=== PATIENT | female | born 1935 | race Caucasian/White ===

== ENCOUNTER 2017-05-23 18:13 | Emergency (ER) | payer MEDICARE ==
[2017-05-23] MEDS ORDERED: Zofran 4 MG/2 ML VIAL IV ONE (18:34)
[2017-05-23] MEDS ORDERED: MORPHINE SULFATE 2 MG INJ IV ONE (18:34)
--- NOTE | 2017-05-23 18:39 | ERPHSYRPT ---
- History of Present Illness Time Seen by Provider: 05/23/17 18:35 Source: patient, family Exam Limitations: no limitations Physician History: 81 y/o female with history of CAD, CVA and diabetes comes to the ER after falling on two different occasions. Pt says that on Friday, she tripped and landed on her left side. On , patient reports passing out and hitting her head. Pt also believes she lost consciousness momentarily. Pt describes the headache, left rib pain and left arm pain as a 5/10, constant and pt has not taken any pain meds. Pt is on ASA. Pt denies any chest pain, shortness of breath , palpitations or blurry vision. Witnessed: unwitnessed Prior Episodes: recent history Timing/Duration: day(s) Precipitating Factors: lightheadedness Context: standing Loss of Consciousness: brief (seconds) [place] of event(s): collapsed Allergies/Adverse Reactions: simvastatin [From Zocor] Allergy (Verified 05/23/17 18:36) Home Medications: Metformin HCl 500 mg [Glucophage 500 MG] 500 mg PO BID 12/31/14 [History] Benazepril HCl 10 mg [Lotensin 10 MG] 10 mg PO DAILY 05/23/17 [History] Metoprolol Tartrate 50 mg PO HS 05/23/17 [History] Hx Tetanus, Diphtheria Vaccination/Date Given: Yes Hx Influenza Vaccination/Date Given: Yes Hx Pneumococcal Vaccination/Date Given: No Immunizations Up to Date: Yes - Past Medical History Pertinent Past Medical History: Yes Neurological History: Stroke, TIA ENT History: Cataracts, Macular Degeneration Cardiac History: Arrhythmia Respiratory History: COPD Endocrine Medical History: Diabetes Type II, Hyperthyroidism Musculoskeletal History: Arthritis, Osteoarthritis GI Medical History: GERD History: Other Psycho-Social History: No Pertinent History Female Reproductive Disorders: No Pertinent History Other Medical History: freq urination,irregular heart beat,high cholesterol - Past Surgical History Past Surgical History: Yes Neuro Surgical History: No Pertinent History Cardiac: No Pertinent History Respiratory: No Pertinent History Gastrointestinal: Appendectomy, Cholecystectomy, Hernia Repair Genitourinary: No Pertinent History Female Surgical History: No Pertinent History Other Surgical History: gallbladder removed hernia repair past colonoscopy times 1 - Social History Smoking Status: Former smoker How long have you smoked: YEARS Exposure to second hand smoke: Yes Drug Use: none Patient Lives Alone: No - Female History Hx Now: No - Review of Systems Constitutional: No Fever, No Chills Eyes: No Symptoms Ears, Nose, & Throat: No Symptoms Respiratory: No Cough, No Dyspnea Cardiac: Syncope, No Chest Pain, No Edema Abdominal/Gastrointestinal: No Abdominal Pain, No Nausea, No Vomiting, No Diarrhea Genitourinary Symptoms: No Dysuria Musculoskeletal: Myalgias, No Back Pain, No Neck Pain Skin: No Rash Neurological: Dizziness, No Focal Weakness, No Sensory Changes Psychological: No Symptoms Endocrine: No Symptoms All Other Systems: Reviewed and Negative Physical Exam - Nursing Vital Signs Nursing Vital Signs: Initial Vital Signs Temperature 97.6 F 05/23/17 18:24 Pulse Rate 62 05/23/17 18:24 Respiratory Rate 20 05/23/17 18:24 Blood Pressure 190/94 05/23/17 18:24 O2 Sat by Pulse Oximetry 94 L 05/23/17 18:24 Pain Scale Pain Intensity 0 - [place] Coma Scale Best Eye Response (Lexi): (4) open spontaneously Best Verbal Response (Lexi): (5) oriented Best Motor Response (Lexi): (6) obeys commands [place] Total: 15 - Physical Exam General Appearance: no apparent distress, alert Eye Exam: bilateral eye: PERRL, EOMI Ears, Nose, Throat Exam: normal ENT inspection, pharynx normal, moist mucous membranes Neck Exam: normal inspection, non-tender, supple, full range of motion Respiratory: normal breath sounds, chest tenderness, lungs clear, No respiratory distress Cardiovascular: regular rate/rhythm, capillary refill <2 sec, No murmur, No pulse deficit Gastrointestinal: soft, normal bowel sounds, No tenderness, No distention, No mass Back Exam: normal inspection, normal range of motion, No CVA tenderness, No vertebral tenderness Extremity Exam: normal inspection, normal range of motion, pelvis stable, limited range of motion, swelling, No tenderness Mental Status: alert, oriented x 3, 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 Exam: normal hearing, normal speech, PERRL, No facial droop Coordination/Gait: normal finger to nose Motor/Sensory: no motor deficit, no sensory deficit, no pronator drift Skin Exam: normal color, warm, dry, No rash SpO2 Interpretation: normal Oxygen Delivery: Room Air Ordered Tests: Active Orders 24 hr Category Date Time Status Accucheck STAT Care 05/23/17 18:32 Active Sort Manager STAT Care 05/23/17 18:32 Active EKG-ER Only STAT Care 05/23/17 18:32 Active IV Insertion STAT Care 05/23/17 18:32 Active CHEST 2 VIEWS (PA AND LAT) Stat Exams 05/23/17 18:32 Taken FOREARM Stat Exams 05/23/17 18:34 Taken HEAD WITHOUT CONTRAST [CT] Stat Exams 05/23/17 18:33 Taken CBC W DIFF Stat Lab 05/23/17 18:44 Completed CMP Stat Lab 05/23/17 18:44 Completed CULTURE,URINE Stat Lab 05/23/17 18:32 Received PROTIME WITH INR Stat Lab 05/23/17 18:44 Completed UA W/ MICROSCOPIC Stat Lab 05/23/17 18:32 Completed Medication Summary Discontinued Medications Generic Name Dose Route Start Last Admin Trade Name Freq PRN Reason Stop Dose Admin Morphine Sulfate 2 mg 05/23/17 18:34 05/23/17 18:58 Morphine Sulfate 2 Mg Inj IV 05/23/17 18:35 2 mg STAT ONE Administration Morphine Sulfate Confirm 05/23/17 18:57 Morphine Sulfate 2 Mg Inj Administered 05/23/17 18:58 Dose 2 mg .ROUTE .STK-MED ONE Ondansetron HCl 4 mg 05/23/17 18:34 05/23/17 18:58 Zofran 4 Mg/2 Ml Vial IV 05/23/17 18:35 4 mg STAT ONE Administration Ondansetron HCl Confirm 05/23/17 18:57 Zofran 4 Mg/2 Ml Vial Administered 05/23/17 18:58 Dose 4 mg .ROUTE .STK-MED ONE Lab/Rad Data: Laboratory Result Diagrams 05/23/17 18:44 05/23/17 18:44 Laboratory Results 05/23/17 05/23/17 05/23/17 Range/Units 18:44 18:44 18:44 WBC 8.9 (4.0-10.5) K/mm3 RBC 4.43 (4.1-5.4) M/mm3 Hgb 13.0 (12.0-16.0) gm/dl Hct 39.4 (35-47) % MCV 88.9 (78-100) fl MCH 29.3 (26-32) pg MCHC 33.0 (32-36) g/dl RDW 17.4 H (11.5-14.0) % Plt Count 226 (150-450) K/mm3 MPV 10.8 H (6-9.5) fl Gran % 71.4 H (36.0-66.0) % Lymphocytes % 17.4 L (24.0-44.0) % Monocytes % 8.2 (0.0-12.0) % Eosinophils % 2.8 (0.00-5.0) % Basophils % 0.2 (0.0-0.4) % Basophils # 0.02 (0-0.4) INR 0.98 (0.8-3.0) Sodium 137 (136-145) mEq/L Potassium 3.5 (3.5-5.1) mEq/L Chloride 100 (98-107) mEq/L Carbon Dioxide 27.4 (21-32) mEq/L Anion Gap 13.2 (5-15) MEQ/L BUN 12 (9-20) mg/dL Creatinine 1.28 (0.55-1.30) mg/dl Estimated GFR 43 ML/MIN Glucose 107 (70-110) MG/DL Calcium 9.1 (8.5-10.1) mg/dL Total Bilirubin 0.60 (0.2-1.0) mg/dL AST 83 H (15-37) U/L ALT 29 (12-78) U/L Alkaline Phosphatase 116 (46-116) U/L Serum Total Protein 6.4 (6.4-8.2) gm/dL Albumin 2.7 L (3.4-5.0) g/dL Ur Collection Type Urine Color (YELLOW) Urine Appearance (CLEAR) Urine pH (5-6) Ur Specific [place] (1.005-1.025) Urine Protein (Negative) Urine Ketones (NEGATIVE) Urine Blood (0-5) [place]/ul Urine Nitrite (NEGATIVE) Urine Bilirubin (NEGATIVE) Urine Urobilinogen (0-1) mg/dL Ur Leukocyte Esterase (NEGATIVE) Urine Microscopic WBC (0-5) /HPF Ur Epithelial Cells (FEW) /HPF Urine Mucus (NEGATIVE) /HPF Urine Glucose (NEGATIVE) mg/dL Specimen Received 05/23/17 Range/Units 18:32 WBC (4.0-10.5) K/mm3 RBC (4.1-5.4) M/mm3 Hgb (12.0-16.0) gm/dl Hct (35-47) % MCV (78-100) fl MCH (26-32) pg MCHC (32-36) g/dl RDW (11.5-14.0) % Plt Count (150-450) K/mm3 MPV (6-9.5) fl Gran % (36.0-66.0) % Lymphocytes % (24.0-44.0) % Monocytes % (0.0-12.0) % Eosinophils % (0.00-5.0) % Basophils % (0.0-0.4) % Basophils # (0-0.4) INR (0.8-3.0) Sodium (136-145) mEq/L Potassium (3.5-5.1) mEq/L Chloride (98-107) mEq/L Carbon Dioxide (21-32) mEq/L Anion Gap (5-15) MEQ/L BUN (9-20) mg/dL Creatinine (0.55-1.30) mg/dl Estimated GFR ML/MIN Glucose (70-110) MG/DL Calcium (8.5-10.1) mg/dL Total Bilirubin (0.2-1.0) mg/dL AST (15-37) U/L ALT (12-78) U/L Alkaline Phosphatase (46-116) U/L Serum Total Protein (6.4-8.2) gm/dL Albumin (3.4-5.0) g/dL Ur Collection Type CLEAN CATCH Urine Color YELLOW (YELLOW) Urine Appearance CLEAR (CLEAR) Urine pH 6.0 (5-6) Ur Specific [place] 1.020 (1.005-1.025) Urine Protein 100 (Negative) Urine Ketones NEGATIVE (NEGATIVE) Urine Blood TRACE NON-HEM (0-5) [place]/ul Urine Nitrite NEGATIVE (NEGATIVE) Urine Bilirubin NEGATIVE (NEGATIVE) Urine Urobilinogen NORMAL (0-1) mg/dL Ur Leukocyte Esterase NEGATIVE (NEGATIVE) Urine Microscopic WBC 0-2 (0-5) /HPF Ur Epithelial Cells FEW (FEW) /HPF Urine Mucus SLIGHT (NEGATIVE) /HPF Urine Glucose NEGATIVE (NEGATIVE) mg/dL Specimen Received [id number] - Progress Progress: improved Progress Note: 05/23/17 20:32 Pt feels better after receiving morphine for muscle pain. The CT shows possible otomastoiditis and the patient will be treated with augmentin. The rest of the labs and cardiac w/u does not show any acute findings. I have advised the patient to return to the ER if she should have any passing out episodes. - Departure Time of Disposition: 20:35 Departure Disposition: Home Clinical Impression: Mastoiditis Qualifiers: Laterality: right Qualified Code(s): H70.91 - Unspecified mastoiditis, right ear Syncope Qualifiers: Syncope type: unspecified Qualified Code(s): R55 - Syncope and collapse Condition: Stable Critical Care Time: No Referrals: UZMA FORRESTER [Primary Care Provider] - Instructions: Prevent Falls, Fainting Additional Instructions: Return to the ER if you should pass out, have dizziness, chest pain, shortness of breath or palpitations.
[2017-05-23 18:47] LABS: BASOPHIL % 0.2 % (0.0-0.4); Eosinophil % 2.8 % (0.00-5.0); Granulocytes % 71.4 % (36.0-66.0); Lymphocytes % 17.4 % (24.0-44.0); Mean Cell Volume 88.9 fl (78-100); Mean Corpuscular Hemoglobin 29.3 pg (26-32); Mean Platelet Volume 10.8 fl (6-9.5); Monocytes % 8.2 % (0.0-12.0); Platelet Count 226 K/mm3 (150-450); Red Blood Count 4.43 M/mm3 (4.1-5.4); Red Cell Distribution Width 17.4 % (11.5-14.0); White Blood Count 8.9 K/mm3 (4.0-10.5)
[2017-05-23] MEDS ORDERED: Zofran 4 MG/2 ML VIAL ONE (18:57)
[2017-05-23] MEDS ORDERED: MORPHINE SULFATE 2 MG INJ ONE (18:57)
[2017-05-23 18:58] LABS: INR 0.98 (0.8-3.0); PROTIME 11.1 SECONDS (9.95-12.35)
[2017-05-23 19:12] LABS: ALBUMIN 2.7 g/dL (3.4-5.0); ANION GAP 13.2 MEQ/L (5-15); BILIRUBIN,TOTAL 0.6 mg/dL (0.2-1.0); Carbon Dioxide 27.4 mEq/L (21-32); Potassium 3.5 mEq/L (3.5-5.1); Total Protein 6.4 gm/dL (6.4-8.2)
[2017-05-23 19:41] LABS: Collection Type CLEAN CATCH
[2017-05-23 19:42] LABS: Bilirubin NEGATIVE (NEGATIVE); Blood TRACE NON-HEM Ery/ul (0-5); COMPLETE URINE MICROSCOPIC? YES; Epithelial Cells FEW /HPF (FEW); Glucose NEGATIVE (NEGATIVE); Leukocyte Esterase NEGATIVE (NEGATIVE); Mucus SLIGHT /HPF (NEGATIVE); WBC 0-2 /HPF (0-5)
[2017-05-23 19:43] LABS: ADD URINE CULTURE? YES (NO)
[2017-05-23 20:12] VITALS: BP 179/69
[2017-05-23 21:05] VITALS: PULSE 56; O2SAT 100
--- NOTE | 2017-05-24 08:37 | XRAY ---
Indication: Pain following fall. Comparison: None 2 views of the left forearm demonstrates mid posterior forearm soft tissue swelling and moderate wrist degenerative changes with heterotopic ossification. No acute fracture, dislocation, or suspicious bony lesions.
--- NOTE | 2017-05-24 08:39 | XRAY ---
Indication: Left-sided following fall 5 days ago. Comparison: March 11, 2016. AP/lateral chest remains hyperinflated and clear again with incidental calcified granulomas. Heart is not enlarged. Bony thorax intact again with osteopenia and degenerative changes. Impression: Stable nonacute hyperinflated chest with chronic features.
--- NOTE | 2017-05-26 12:37 | XRAY ---
Indication: Left-sided head injury/headache following fall. Multiple contiguous axial images obtained through the head without contrast. Comparison: July 17, 2011. There is age-appropriate global atrophy and minimal periventricular degenerative microvascular ischemia. New finding for small right cerebellar infarct. No acute intracranial hemorrhage, abnormal extra-axial fluid collection, or mass effect. Fourth ventricle is midline without hydrocephalus. Bony calvarium intact. Again there is partial opacification of the right mastoid air cells. Remaining visualized paranasal sinuses are clear. Impression: Nonacute senile brain with old right cerebellar infarct. Stable right mastoid air cell opacification presumed inflammatory. Comment: Preliminary interpretation was made by [facility]. No discrepancy. CTDI 60.53
== END 2017-05-23 21:05 | disposition home or self-care (01) ==
LOC: ED 18:13
DX: H70.91 Unspecified mastoiditis, right ear (principal); R55 Syncope and collapse; I25.10 Atherosclerotic heart disease of native coronary artery without angina pectoris; Z86.73 Personal history of transient ischemic attack (TIA), and cerebral infarction without residual deficits; E11.9 Type 2 diabetes mellitus without complications; Z91.81 History of falling; S00.93XA Contusion of unspecified part of head, initial encounter; R51 Headache; R07.81 Pleurodynia; M79.602 Pain in left arm; W01.0XXA Fall on same level from slipping, tripping and stumbling without subsequent striking against object, initial encounter; Z79.84 Long term (current) use of oral hypoglycemic drugs; J44.9 Chronic obstructive pulmonary disease, unspecified; E05.90 Thyrotoxicosis, unspecified without thyrotoxic crisis or storm; E78.00 Pure hypercholesterolemia, unspecified; R35.0 Frequency of micturition; I49.8 Other specified cardiac arrhythmias
CPT/HCPCS: 36000; 36415; 70450; 71020; 73090; 80053; 81000; 82962; 85025; 85610; 87086; 93005; 93041; 96374; 96375; 99284; J2270; J2405

== ENCOUNTER 2017-06-11 16:02 | Observation (INO) | payer MEDICARE ==
--- NOTE | 2017-06-11 17:12 | ERPHSYRPT ---
- History of Present Illness Source: patient Exam Limitations: no limitations Patient Subjective Stated Complaint: "I have been falling quite a bit lately. I just cannot stay awake. I called Dr. Forrester and he says I need to cut one of my pills in half." Triage Nursing Assessment: Pt alert and oriented X 3, skin pwd pt ambulates with assistance, able to speak in full sentencs. pt has several skin tears in various stages of healing all over her arms and legs. Several bandages noted as well and +2 pitting edema noted to feet and legs bilat,. CSM X 4 Occurred: last week Reason for Fall: unknown Injuries/Pain Location: face, upper extremity, lower extremity Loss of Consciousness: unsure Quality: aching Severity of Pain-Max: mild Severity of Pain-Current: mild Modifying Factors: Improves With: nothing Associated Symptoms (Fall): extremity injury, headache Hx Tetanus, Diphtheria Vaccination/Date Given: No Hx Influenza Vaccination/Date Given: No Hx Pneumococcal Vaccination/Date Given: No Immunizations Up to Date: Yes <NERI KLEIN - Last Filed: 06/11/17 19:05> <NERI HURLEY - Last Filed: 06/11/17 21:17> - History of Present Illness Time Seen by Provider: 06/11/17 16:56 Physician History: The patient is a 81-year-old female with family complaining of being very sleepy today. She says fallen several times over the past week. She states that she fell 4 times on Friday. Her doctor told her to cut one of doses of medicines and half to see if that would not make her feel better. During the fall she has hurt her face, right arm, and left knee. Her past medical history is significant for diabetes, depression, hypertension, congestive heart failure , and COPD. (NERI KLEIN) Allergies/Adverse Reactions: simvastatin [From Zocor] Allergy (Verified 06/11/17 16:23) Home Medications: Metformin HCl 500 mg [Glucophage 500 MG] 500 mg PO BID 12/31/14 [History] Benazepril HCl 10 mg [Lotensin 10 MG] 10 mg PO DAILY 05/23/17 [History] Metoprolol Tartrate 50 mg PO HS 05/23/17 [History] - Review of Systems Constitutional: Weakness Eyes: No Symptoms Ears, Nose, & Throat: No Symptoms Respiratory: No Cough, No Dyspnea Cardiac: No Chest Pain, No Edema, No Syncope Abdominal/Gastrointestinal: No Abdominal Pain, No Nausea, No Vomiting, No Diarrhea Genitourinary Symptoms: No Dysuria Musculoskeletal: Fall, Injury, No Back Pain, No Neck Pain Skin: No Rash Neurological: Headache Psychological: No Symptoms Endocrine: No Symptoms Hematologic/Lymphatic: No Symptoms Immunological/Allergic: No Symptoms All Other Systems: Reviewed and Negative <NERI KLEIN - Last Filed: 06/11/17 19:05> - Past Medical History Pertinent Past Medical History: Yes Neurological History: Stroke, TIA ENT History: Cataracts, Macular Degeneration Cardiac History: Arrhythmia Respiratory History: COPD Endocrine Medical History: Diabetes Type II, Hyperthyroidism Musculoskeletal History: Arthritis, Osteoarthritis GI Medical History: GERD History: Other Psycho-Social History: No Pertinent History Female Reproductive Disorders: No Pertinent History Other Medical History: freq urination,irregular heart beat,high cholesterol - Past Surgical History Past Surgical History: Yes Neuro Surgical History: No Pertinent History Cardiac: No Pertinent History Respiratory: No Pertinent History Gastrointestinal: Appendectomy, Cholecystectomy, Hernia Repair Genitourinary: No Pertinent History Female Surgical History: No Pertinent History Other Surgical History: gallbladder removed hernia repair past colonoscopy times 1 - Social History Smoking Status: Current every day smoker How long have you smoked: years Exposure to second hand smoke: Yes Drug Use: none Patient Lives Alone: No (lives with son, but he is gone all day) - Female History Hx Now: No <NERI KLEIN - Last Filed: 06/11/17 19:05> - Lexi Coma Score Best Eye Response ([place]): (4) open spontaneously Best Verbal Response (Lexi): (5) oriented Best Motor Response (Lexi): (6) obeys commands [place] Total: 15 - Physical Exam General Appearance: no apparent distress, alert Head Injury: ecchymosis, swelling, tenderness Eye Exam: PERRL/EOMI ENT Exam: airway nml Neck Exam: normal inspection, No tenderness Respiratory/Chest Exam: rhonchi, wheezing Cardiovascular Exam: normal heart sounds, regular rate/rhythm Gastrointestinal Exam: soft, No tenderness, No distention, No guarding, No ecchymosis Rectal Exam: not done Back Exam: normal inspection, No vertebral tenderness Extremity Exam: evidence of injury, other (There is a large healing skin tear to the posterior aspect of the right upper arm in the mid region of the arm. There is a healing wound to the left patella. There is ecchymosis over and around the left eye.) Neurologic Exam: alert, oriented x 3, cooperative, sensation nml, No motor deficits Skin Exam: normal color, warm, dry SpO2 Interpretation: borderline oxygenation SpO2: 92 Oxygen Delivery: Room Air <NERI KLEIN - Last Filed: 06/11/17 19:05> - Nursing Vital Signs Nursing Vital Signs: Initial Vital Signs Temperature 97.3 F 06/11/17 16:05 Pulse Rate 56 L 06/11/17 16:05 Respiratory Rate 14 06/11/17 16:05 Blood Pressure 185/86 06/11/17 16:05 O2 Sat by Pulse Oximetry 92 L 06/11/17 16:05 Pain Scale Pain Intensity 0 - Course EKG Interpreted by Me: RATE, Sinus Rhythm, NORMAL AXIS, NORMAL INTERVALS, NORMAL QRS, NORMAL ST-T, Other (no change compared to EKG 05/23/17.) <NERI KLEIN - Last Filed: 06/11/17 19:05> Ordered Tests: Active Orders 24 hr Category Date Time Status Cath [Catheter-[place]] STAT Care 06/11/17 17:22 Active EKG-ER Only STAT Care 06/11/17 17:23 Active IV Insertion STAT Care 06/11/17 17:19 Active Oxygen-ED Only NASAL CANNULA 2 lpm Care 06/11/17 17:35 Active Pulse Oximetry (ED) STAT Care 06/11/17 19:54 Active CERVICAL SPINE WO CONTRAST [CT] Stat Exams 06/11/17 17:20 Taken CHEST 2 VIEWS (PA AND LAT) Stat Exams 06/11/17 17:22 Taken FACIAL BONES WO CONTRAST [CT] Stat Exams 06/11/17 19:53 Ordered HEAD WITHOUT CONTRAST [CT] Stat Exams 06/11/17 17:20 Taken KNEE (3 VIEWS) Stat Exams 06/11/17 19:54 Ordered SHOULDER Stat Exams 06/11/17 19:53 Ordered BLOOD CULTURE Stat Lab 06/11/17 18:30 Received CBC W DIFF Stat Lab 06/11/17 17:39 Completed CMP Stat Lab 06/11/17 17:39 Completed CULTURE,SPUTUM Stat Lab 06/11/17 19:54 Uncollected CULTURE,URINE Stat Lab 06/11/17 17:33 Received Lactic Acid Stat Lab 06/11/17 17:32 Completed NT PRO BNP Stat Lab 06/11/17 17:30 Completed TROPONIN Q3H Lab 06/11/17 17:39 Completed TROPONIN Q3H Lab 06/11/17 20:30 Ordered TROPONIN Q3H Lab 06/11/17 23:30 Ordered TROPONIN Q3H Lab 06/12/17 02:30 Ordered TROPONIN Q3H Lab 06/12/17 05:30 Ordered UA W/ MICROSCOPIC Stat Lab 06/11/17 17:33 Completed Medication Summary Generic Name Dose Route Start Last Admin Trade Name Freq PRN Reason Stop Dose Admin Sodium Chloride 1,000 mls @ 100 mls/hr 06/11/17 17:30 06/11/17 17:31 Sodium Chloride 0.9% 1000 Ml IV 07/11/17 17:29 100 mls/hr .Q10H KEY Administration Discontinued Medications Generic Name Dose Route Start Last Admin Trade Name Freq PRN Reason Stop Dose Admin Ceftriaxone Sodium/Dextrose 1 g in 50 mls @ 100 mls/hr 06/11/17 19:54 20:09 Rocephin 1 Gm-D5w 50 Ml Bag IV 06/11/17 20:23 100 mls/hr STAT STA Administration Azithromycin 500 mg in 250 mls @ 250 mls/hr 06/11/17 19:54 06/11/17 21:15 Zithromax 500 Mg/ 250 Ml Nacl Premix IV 06/11/17 20:53 250 mls/hr STAT STA Administration Azithromycin Confirm 06/11/17 20:08 Zithromax 500 Mg/ 250 Ml Nacl Premix Administered 06/11/17 20:09 Dose 500 mg in 250 mls @ ud IV .STK-MED ONE Ceftriaxone Sodium/Dextrose Confirm 06/11/17 20:08 Rocephin 1 Gm-D5w 50 Ml Bag Administered 06/11/17 20:09 Dose 1 g in 50 mls @ ud IV .STK-MED ONE Levalbuterol HCl 1.25 mg 06/11/17 19:54 Xopenex 1.25 Mg/0.5 Ml Ud Nebule IH 06/11/17 19:55 STAT ONE Levalbuterol HCl Confirm 06/11/17 20:55 Xopenex 1.25 Mg/0.5 Ml Ud Nebule Administered 06/11/17 20:56 Dose 1.25 mg IH .STK-MED ONE Sodium Chloride Confirm 06/11/17 20:57 Sodium Chloride 3 Ml Ud Nebules Administered 06/11/17 20:58 Dose 3 ml IH .STK-MED ONE Lab/Rad Data: Laboratory Result Diagrams 06/11/17 17:39 06/11/17 17:39 Laboratory Results 06/11/17 06/11/17 06/11/17 Range/Units 17:39 17:39 17:39 WBC 7.4 (4.0-10.5) K/mm3 RBC 4.16 (4.1-5.4) M/mm3 Hgb 12.3 (12.0-16.0) gm/dl Hct 35.6 (35-47) % MCV 85.6 (78-100) fl MCH 29.6 (26-32) pg MCHC 34.6 (32-36) g/dl RDW 16.6 H (11.5-14.0) % Plt Count 396 (150-450) K/mm3 MPV 10.2 H (6-9.5) fl Gran % 56.7 (36.0-66.0) % Lymphocytes % 20.2 L (24.0-44.0) % Monocytes % 17.5 H (0.0-12.0) % Eosinophils % 5.1 H (0.00-5.0) % Basophils % 0.5 (0.0-0.4) % Basophils # 0.04 (0-0.4) Sodium 128 L (136-145) mEq/L Potassium 4.1 (3.5-5.1) mEq/L Chloride 94 L (98-107) mEq/L Carbon Dioxide 26.7 (21-32) mEq/L Anion Gap 10.9 (5-15) MEQ/L BUN 12 (9-20) mg/dL Creatinine 1.19 (0.55-1.30) mg/dl Estimated GFR 47 ML/MIN Glucose 79 (70-110) MG/DL Lactic Acid (0.4-2.0) Calcium 9.4 (8.5-10.1) mg/dL Total Bilirubin 0.40 (0.2-1.0) mg/dL AST 34 (15-37) U/L ALT 19 (12-78) U/L Alkaline Phosphatase 134 H (46-116) U/L Troponin I 0.018 (0.000-0.056) ng/ml NT-Pro-B Natriuret Pep (0-450) pg/ml Serum Total Protein 6.7 (6.4-8.2) gm/dL Albumin 2.7 L (3.4-5.0) g/dL Ur Collection Type Urine Color (YELLOW) Urine Appearance (CLEAR) Urine pH (5-6) Ur Specific [place] (1.005-1.025) Urine Protein (Negative) Urine Ketones (NEGATIVE) Urine Blood (0-5) [place]/ul Urine Nitrite (NEGATIVE) Urine Bilirubin (NEGATIVE) Urine Urobilinogen (0-1) mg/dL Ur Leukocyte Esterase (NEGATIVE) Urine Microscopic RBC (0-2) /HPF Urine Microscopic WBC (0-5) /HPF Ur Epithelial Cells (FEW) /HPF Urine Bacteria (NEGATIVE) /HPF Urine Glucose (NEGATIVE) mg/dL Specimen Received 06/11/17 06/11/17 06/11/17 Range/Units 17:33 17:32 17:30 WBC (4.0-10.5) K/mm3 RBC (4.1-5.4) M/mm3 Hgb (12.0-16.0) gm/dl Hct (35-47) % MCV (78-100) fl MCH (26-32) pg MCHC (32-36) g/dl RDW (11.5-14.0) % Plt Count (150-450) K/mm3 MPV (6-9.5) fl Gran % (36.0-66.0) % Lymphocytes % (24.0-44.0) % Monocytes % (0.0-12.0) % Eosinophils % (0.00-5.0) % Basophils % (0.0-0.4) % Basophils # (0-0.4) Sodium (136-145) mEq/L Potassium (3.5-5.1) mEq/L Chloride (98-107) mEq/L Carbon Dioxide (21-32) mEq/L Anion Gap (5-15) MEQ/L BUN (9-20) mg/dL Creatinine (0.55-1.30) mg/dl Estimated GFR ML/MIN Glucose (70-110) MG/DL Lactic Acid 0.8 (0.4-2.0) Calcium (8.5-10.1) mg/dL Total Bilirubin (0.2-1.0) mg/dL AST (15-37) U/L ALT (12-78) U/L Alkaline Phosphatase (46-116) U/L Troponin I (0.000-0.056) ng/ml NT-Pro-B Natriuret Pep 4367 H (0-450) pg/ml Serum Total Protein (6.4-8.2) gm/dL Albumin (3.4-5.0) g/dL Ur Collection Type CLEAN CATCH Urine Color YELLOW (YELLOW) Urine Appearance CLEAR (CLEAR) Urine pH 5.0 (5-6) Ur Specific [place] 1.010 (1.005-1.025) Urine Protein 100 (Negative) Urine Ketones NEGATIVE (NEGATIVE) Urine Blood 250 (0-5) [place]/ul Urine Nitrite NEGATIVE (NEGATIVE) Urine Bilirubin NEGATIVE (NEGATIVE) Urine Urobilinogen NORMAL (0-1) mg/dL Ur Leukocyte Esterase NEGATIVE (NEGATIVE) Urine Microscopic RBC 0-2 (0-2) /HPF Urine Microscopic WBC 2-5 (0-5) /HPF Ur Epithelial Cells FEW (FEW) /HPF Urine Bacteria FEW (NEGATIVE) /HPF Urine Glucose NEGATIVE (NEGATIVE) mg/dL Specimen Received 06/11/17 1800 <NERI KLEIN - Last Filed: 06/11/17 19:05> - Progress Discussed with : Lisa (OKE - [id number]) <NERI HURLEY - Last Filed: 06/11/17 21:17> - Progress Progress Note: 06/11/17 19:05 Pt care discussed and care transferred to Dr Hurley at 19:00. (NERI KLEIN) 06/11/17 19:[address] HURLEY 1933: EOMI; LEFT PERIORBITAL HEMATOMA; PHARYNX PINK; LUNGS HAVE RHONCHI & WHEEZING; NO CARDIAC RUB; ABDOMINAL B.S. NORMAL; SCATTERED SCABBED LESIONS ON EXTREMITIES; FULL ROM OF ALL EXTREMITIES WITH PAIN IN THE RIGHT SHOULDER WITH ROM AND MILD EDEMA AND TENDERNESS OVER LEFT KNEE SCABBED ABRASIONS; ALERT & COOPERATIVE. PT STATES SHE HAS BEEN COUGHING PRODUCTIVE OF CLEAR PHLEGM FOR THE PAST WEEK AND HAS BEEN TAKING AN ANTIBIOTIC TID FOR THE PAST 5 DAYS FOR AN INFECTION OF THE LEFT FOREARM WHICH HAS BEEN HEALING. PT ALSO C/O PAIN IN THE LEFT KNEE. (NERI HURLEY) <NERI KLEIN. - Last Filed: 06/11/17 19:05> - Departure Time of Disposition: 21:17 Departure Disposition: Observation Critical Care Time: No <NERI HURLEY - Last Filed: 06/11/17 21:17> - Departure Clinical Impression: WEAKNESS, BRONCHITIS, MULTIPLE ABRASIONS, RIGHT SHOULDER AND LEFT KNEE PAIN, COPD, ARTHRITIS, GERD, HYPONATREMIA, DM Condition: Stable Referrals: UZMA FORRESTER [Primary Care Provider] -
[2017-06-11] MEDS ORDERED: Sodium Chloride 0.9% 1000 ML 1,000 ML IV SCH ×2 (17:30→22:03)
[2017-06-11] MEDS ORDERED: Sodium Chloride 0.9% 1000 ML 1,000 ML ONE (17:30)
[2017-06-11 17:40] LABS: BASOPHIL % 0.5 % (0.0-0.4); Eosinophil % 5.1 % (0.00-5.0); Granulocytes % 56.7 % (36.0-66.0); Lymphocytes % 20.2 % (24.0-44.0); Mean Cell Volume 85.6 fl (78-100); Mean Corpuscular Hemoglobin 29.6 pg (26-32); Mean Platelet Volume 10.2 fl (6-9.5); Monocytes % 17.5 % (0.0-12.0); Platelet Count 396 K/mm3 (150-450); Red Blood Count 4.16 M/mm3 (4.1-5.4); Red Cell Distribution Width 16.6 % (11.5-14.0); White Blood Count 7.4 K/mm3 (4.0-10.5)
[2017-06-11 18:26] LABS: ADD URINE CULTURE? YES (NO); Bacteria FEW /HPF (NEGATIVE); Bilirubin NEGATIVE (NEGATIVE); Blood 250 Ery/ul (0-5); COMPLETE URINE MICROSCOPIC? YES; Collection Type CLEAN CATCH; Epithelial Cells FEW /HPF (FEW); Glucose NEGATIVE (NEGATIVE); Leukocyte Esterase NEGATIVE (NEGATIVE)
[2017-06-11 19:09] LABS: ALBUMIN 2.7 g/dL (3.4-5.0); ANION GAP 10.9 MEQ/L (5-15); BILIRUBIN,TOTAL 0.4 mg/dL (0.2-1.0); Carbon Dioxide 26.7 mEq/L (21-32); Potassium 4.1 mEq/L (3.5-5.1); Total Protein 6.7 gm/dL (6.4-8.2)
[2017-06-11] MEDS ORDERED: ROCEPHIN 1 Gm-D5w 50 ml Bag** 1 G/50 ML IVPB IV STA (19:54)
[2017-06-11] MEDS ORDERED: Zithromax 500 MG/ 250 ML NaCl Premix 500 MG/250 ML IVPB IV STA (19:54)
[2017-06-11] MEDS ORDERED: Xopenex 1.25 MG/0.5 ML UD NEBULE IH ONE ×2 (19:54→20:55)
[2017-06-11] MEDS ORDERED: Zithromax 500 MG/ 250 ML NaCl Premix 500 MG/250 ML IVPB IV ONE (20:08)
[2017-06-11] MEDS ORDERED: ROCEPHIN 1 Gm-D5w 50 ml Bag** 1 G/50 ML IVPB IV ONE (20:08)
[2017-06-11] MEDS ORDERED: Sodium Chloride 3 ML UD NEBULES IH ONE (20:57)
[2017-06-11] MEDS ORDERED: NovoLOG Insulin SQ PRN (22:03)
[2017-06-11] MEDS ORDERED: PROVENTIL 2.5 MG/3 ML NEB IH PRN (22:03)
[2017-06-11] MEDS ORDERED: Robitussin-Dm Syrup PO PRN (22:03)
[2017-06-11] MEDS ORDERED: Phenergan 25 MG INJ IV PRN (22:03)
[2017-06-11] MEDS ORDERED: DUONEB 0.5-3 MG/3 ml Neb IH SCH (23:00)
[2017-06-11] MEDS ORDERED: Neurontin 400 MG PO SCH (23:45)
[2017-06-11] MEDS ORDERED: DUONEB 0.5-3 MG/3 ml Neb IH PRN (23:51)
[2017-06-12] MEDS: TYLENOL 325 MG PO PRN ×2 (00:10→20:39)
[2017-06-12] MEDS: Lopressor 50 MG PO SCH ×2 (00:11→22:54)
[2017-06-12] MEDS: NITRO BID PO SCH ×3 (00:11→22:54)
[2017-06-12] MEDS: Klor Con 10 MEQ PO SCH ×4 (00:11→21:00)
[2017-06-12 03:26] LABS: A-aADO2 83; ARTERIAL BLD GAS O2 SATURATION 95.6 % (95-100); ARTERIAL BLOOD GAS FIO2 32 %; ARTERIAL BLOOD GAS PO2 70 mmHg (75-100)
[2017-06-12 03:27] LABS: ALLEN TEST OK? y
[2017-06-12 05:38] LABS: BASOPHIL % 0.9 % (0.0-0.4); Eosinophil % 6.4 % (0.00-5.0); Granulocytes % 47.7 % (36.0-66.0); Mean Cell Volume 86.6 fl (78-100); Platelet Count 347 K/mm3 (150-450); Red Blood Count 3.73 M/mm3 (4.1-5.4); Red Cell Distribution Width 16.8 % (11.5-14.0); White Blood Count 5.5 K/mm3 (4.0-10.5)
[2017-06-12 05:42] LABS: Mean Corpuscular Hemoglobin 29.4 pg (26-32)
[2017-06-12 06:02] LABS: ANION GAP 9.4 MEQ/L (5-15); BILIRUBIN,TOTAL 0.3 mg/dL (0.2-1.0); Carbon Dioxide 28.2 mEq/L (21-32); Potassium 3.9 mEq/L (3.5-5.1); Total Protein 5.3 gm/dL (6.4-8.2)
--- NOTE | 2017-06-12 08:34 | XRAY ---
Indication: Pain following fall. Multiple contiguous axial images obtained through the head without contrast. Comparison: May 23, 2017. Images through the base the brain slightly degraded by motion artifact. Stable age-appropriate global atrophy, minimal periventricular degenerative micro-ischemia bilaterally, and small old right cerebellar infarct. No acute intracranial hemorrhage, abnormal extra-axial fluid collection, or mass effect. Bony calvarium intact. Visualized paranasal sinuses are clear. Again partial opacification of the right mastoid air cells. 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 Comment: Preliminary interpretation was made by [facility]. No discrepancy. CTDI 50.62
--- NOTE | 2017-06-12 08:44 | XRAY ---
Indication: Pain following fall. Multiple contiguous axial images obtained through the cervical spine. Sagittal and coronal reformatted images obtained. Comparison: July 17, 2011. Axial images again negative for acute fracture, suspicious bony lesions, or spinal canal stenosis. Progressive worsening moderate C3-C6 degenerative endplate spurring with stable mild multilevel bilateral degenerative facet arthropathy. Sagittal and coronal reformatted images again demonstrate mild lordotic straightening and worsening C3-C6 disc space narrowing. There is now 2 mm anterolisthesis of C3 on C4 and 3 mm anterolisthesis of C6 on C7. No acute compression fracture or jumped facet. Normal-appearing craniocervical junction. Visualized noncontrasted soft tissues again demonstrates scattered carotid calcifications bilaterally. Lung apices unremarkable. CT head reported separately. Impression: 1. Again negative acute fracture. 2. Progressive worsening C3-C6 degenerative changes. 3. New C3 and C6 anterolisthesis presumed degenerative. Comment: Preliminary interpretation was made by [facility]. C3 and C6 anterolisthesis not reported. CTDI 50.62
--- NOTE | 2017-06-12 08:47 | XRAY ---
Indication: Left orbital pain/swelling following fall. Multiple contiguous axial images obtained through the facial bones. Sagittal and coronal reformatted images obtained. Comparison: None. Patient is edentulous. Mild left periorbital soft tissue swelling. No acute fracture, suspicious bony lesions, or radiopaque foreign body. Orbits including roof, yepez, and floors intact. Paranasal sinuses and nasal passages are essentially clear. Mild nasal septal deviation to the right. Scattered carotid calcifications bilaterally. Remaining visualized noncontrasted soft tissues are unremarkable. CT head and CT cervical spine reported separately. Impression: Left periorbital soft tissue swelling. Nasal septal deviation. Negative for acute facial bone fracture. Comment: Preliminary interpretation was made by [facility] [place]. No discrepancy. CTDI 59.47
--- NOTE | 2017-06-12 08:49 | XRAY ---
Indication: Cough. Status post fall. Comparison: May 23, 2017. PA/lateral chest again hyperinflated with chronic interstitial lung markings and calcific granulomas. No focal infiltrate, consolidation, or large effusion. Heart is borderline enlarged. Bony thorax intact again with osteopenia and degenerative changes. Impression: Stable nonacute chest with chronic features.
--- NOTE | 2017-06-12 08:53 | HP ---
CHIEF COMPLAINT: Weakness, falling, drowsiness. HISTORY OF PRESENT ILLNESS: The patient is a 81 y/o WF patient who presented to my office 2 days ago with complaints of being very tired and unable to stay awake. The patient had had several falls over the past few days. She was seen in the office and found to be on gabapentin at 800 mg tid. I am unsure where this came from. I know that I did not prescribe that for her. We asked the patient to cut this dosage in half and take no more than 400 mg tid. She reports she is taking it for left foot neuropathy type pain. She reports that without the medicine that she hurts. The patient had recently also been seen in the office for having fallen and scraped up her left arm and she had had an episode of cellulitis which was treated successfully with oral antibiotics. This has resolved nicely. The patient presented herself to the Emergency Room on the evening of 06/11/17 with the same complaints. Her caregivers felt that she could no longer be cared for in the home. She was subsequently admitted to the hospital with the diagnosis of also hyponatremia and she was noted to be hypothyroid on the laboratory values in our office and was asked to increase her Synthroid, but I am not sure that this was accomplished yet. PHYSICAL EXAMINATION: The patient is an elderly WF who appears to be currently in no obvious distress. Her most recent vital signs showed the temperature 97.9, pulse 42, respiratory rate 16, BP 129/58, O2 saturation was noted to be 92%. HEENT: Reveals bruising of her left eye from the fall. Otherwise, she is normocephalic and atraumatic. Pupils equal, round, and reactive to light. Oropharynx is slightly dry. NECK: Supple without lymphadenopathy, thyromegaly, or JVD. Is not significantly tender. CHEST: Clear to auscultation. Good air movement bilaterally. HEART: Somewhat bradycardic, but regular. No murmurs, rubs, or gallops were heard. ABDOMEN: Soft, nontender, nondistended without hepatosplenomegaly or masses. EXTREMITIES: Without significant cyanosis, clubbing, or edema. NEURO: The patient is currently alert and oriented X 3 and no obvious focal deficits are noted. She appears to be less drowsy than she was in the office. LABORATORY STUDIES: From the Emergency Room, show a NT Pro BNP of 4367. Lactic acid was 0.8. Her troponin was 0.018. UA showed specific gravity of 1.010, showed 250 blood with 2-5 WBC and 0-2 RBC per high powered field. Her Hgb was 12.3, WBC 7400, platelet count is 396,000. Her metabolic panel showed a glucose of 79, BUN 12, creatinine 1.19, sodium was low at 128, potassium was normal. Liver enzymes were normal. She had multiple x-rays performed with no acute fractures seen. CT scan of the brain likewise showed old findings, nothing new was apparent. ASSESSMENT: 1. THE PATIENT WITH MULTIPLE FALLS. SHE NO LONGER CAN CARE FOR HERSELF IN THE HOME. She has been admitted for OT and PT evaluation with possible rehab placement. 2. THE PATIENT WITH HYPONATREMIA. We have placed her on fluid restrictions to try to bring her sodium up. 3. HYPOTHRYOID. We will be increasing her Synthroid to get her in the normal range on her free T4's. The patient had been placed empirically in the Emergency Room on Rocephin and Zithromax. I am unsure why at the current time. She also had a Upton catheter placed for what appears to be congestive heart failure with the Lasix to try to diurese her to see if this will help as well. Her home medicine list otherwise will be evaluated in its entirety as it is not currently available on the chart for review. I know that she had the gabapentin which will be held. We will also obtain a cardiology consultation with echocardiogram to be performed for what appears to be congestive heart failure. Her steel welder is Dr. Tobar.
[2017-06-12] MEDS: PROTONIX 40 MG IV IV SCH (08:55)
--- NOTE | 2017-06-12 08:59 | XRAY ---
Indication: Pain following fall. Comparison: None 3 views of the left knee demonstrates mild osteopenia, mild tricompartmental degenerative changes, and moderate scattered vascular calcifications. No other bony, articular, or soft tissue abnormalities.
--- NOTE | 2017-06-12 08:59 | XRAY ---
Indication: Pain following fall. Comparison: April 16, 2017. 3 views of the right shoulder unchanged again demonstrating osteopenia and degenerative changes of the glenohumeral and AC joint. No new/acute findings.
[2017-06-12] MEDS: ENOXAPARIN SODIUM SQ SCH (10:15)
[2017-06-12] MEDS: DUONEB 0.5-3 MG/3 ml Neb IH SCH ×4 (11:20→23:06)
[2017-06-12] MEDS: Glucophage 500 MG PO SCH ×2 (11:27→17:17)
[2017-06-12] MEDS: ceLEXa 20 MG PO SCH (11:27)
[2017-06-12] MEDS: CLARITIN 10 MG PO SCH (11:27)
[2017-06-12] MEDS: Ditropan 5 MG PO SCH (11:27)
[2017-06-12] MEDS: Toprol Xl 100 MG PO SCH (11:28)
--- NOTE | 2017-06-12 14:32 | ECHO ---
DATE: 06/12/17 A transthoracic echocardiograph examination with color Doppler study was done. INDICATION: Congestive heart failure, hypertension, hyperlipidemia, and transient ischemic attack. IMPRESSION: 1. NO REGIONAL WALL MOTION ABNORMALITY WITH ESTIMATED GLOBAL LEFT VENTRICULAR EJECTION FRACTION BETWEEN 50 AND 60%. 2. MODERATE MITRAL REGURGITATION. 3. MILD TRICUSPID REGURGITATION WITH RIGHT VENTRICULAR SYSTOLIC PRESSURE OF 43 MM OF MERCURY. 4. TRACE PULMONIC INSUFFICIENCY. 5. LEFT ATRIAL ENLARGEMENT. 6. LEFT VENTRICULAR HYPERTROPHY. 7. LEFT VENTRICULAR DIASTOLIC DYSFUNCTION. The left ventricle was visualized and demonstrated adequate motion of all the segments with estimated global left ventricular ejection fraction of 60%. There is mild left ventricular hypertrophy. The mitral valve was seen and this opens adequately. There is moderate mitral regurgitation. The left atrium is moderately enlarged. The aortic valve is sclerotic, but opens adequately. Right-sided chambers are mildly dilated. The right atrium is also mildly dilated. There is mild tricuspid regurgitation with right ventricular systolic pressure of 43 mm Hg. There is also mild pulmonic insufficiency. Tissue Doppler study of the lateral mitral annulus is suggestive of left ventricular diastolic dysfunction.
[2017-06-12] MEDS: SYNTHROID 150 MCG PO SCH (14:50)
[2017-06-12] MEDS: Lotensin 10 MG PO SCH (14:50)
[2017-06-12] MEDS ORDERED: ROCEPHIN 1 Gm-D5w 50 ml Bag** 1 G/50 ML IVPB IV SCH (22:00)
[2017-06-12] MEDS ORDERED: Zithromax 500 MG/ 250 ML NaCl Premix 500 MG/250 ML IVPB IV SCH (22:00)
[2017-06-13] MEDS: DUONEB 0.5-3 MG/3 ml Neb IH SCH ×3 (02:51→10:13)
[2017-06-13 06:14] LABS: ALBUMIN 1.9 g/dL (3.4-5.0); ANION GAP 10.3 MEQ/L (5-15); BILIRUBIN,TOTAL 0.2 mg/dL (0.2-1.0); Carbon Dioxide 26.4 mEq/L (21-32); Potassium 4.3 mEq/L (3.5-5.1); Total Protein 5.1 gm/dL (6.4-8.2)
[2017-06-13] MEDS: TYLENOL 325 MG PO PRN (06:24)
[2017-06-13] MEDS: NITRO BID PO SCH (09:20)
[2017-06-13] MEDS: Toprol Xl 100 MG PO SCH (09:20)
[2017-06-13] MEDS: CLARITIN 10 MG PO SCH (09:20)
[2017-06-13] MEDS: Klor Con 10 MEQ PO SCH ×2 (09:20→14:35)
[2017-06-13] MEDS: Lotensin 10 MG PO SCH (09:20)
[2017-06-13] MEDS: SYNTHROID 150 MCG PO SCH (09:20)
[2017-06-13] MEDS: ceLEXa 20 MG PO SCH (09:21)
[2017-06-13] MEDS: PROTONIX 40 MG IV IV SCH (09:21)
[2017-06-13] MEDS: ENOXAPARIN SODIUM SQ SCH (09:21)
[2017-06-13] MEDS: Ditropan 5 MG PO SCH (09:21)
[2017-06-13] MEDS: Glucophage 500 MG PO SCH (09:23)
--- NOTE | 2017-06-13 10:38 | PCM.DCORD ---
- Discharge Discharge Date: 06/13/17 Condition: Good Prescriptions: Continue Metformin HCl 500 mg [Glucophage 500 MG] 500 mg PO BID Albuterol/Ipratropium 3ml Neb* [DUONEB 0.5-3 MG/3 ml Neb] 3 ml IH Q4HRT #0 ampul.neb Citalopram Hydrobromide 20 mg* [ceLEXa 20 MG] 10 mg PO DAILY #0 tablet Loratadine 10 mg [Claritin 10 mg] 10 mg PO DAILY #0 tablet Potassium Chloride 10 Meq Tab* [Klor Con 10 MEQ] 10 meq PO TID #0 tab Nitroglycerin 2.5 mg [Nitro-Bid 2.5 mg] 2.5 mg PO BID #0 capsule.sa Metoprolol Succinate 100 mg [Toprol Xl 100 MG] 100 mg PO DAILY #0 tablet.sa Benazepril HCl 10 mg [Lotensin 10 MG] 40 mg PO DAILY Metoprolol Tartrate 50 mg PO HS Levothyroxine Sodium [Synthroid] 150 mcg PO DAILY Oxybutynin Chloride 5 mg PO DAILY Discontinued Gabapentin 400 mg [Neurontin 400 MG] 800 mg PO TID Follow up with: UZMA FORRESTER [Primary Care Provider] - 06/23/17 10:00 am
[2017-06-13 11:47] VITALS: BP 142/66; PULSE 69; O2SAT 98
== END 2017-06-13 15:35 | disposition home or self-care (01) ==
LOC: ED 16:02 → MED SURG 21:57
PROVIDERS: ADMIT Family Medicine; ATTEND Family Medicine
DX: E87.1 Hypo-osmolality and hyponatremia (principal); I25.10 Atherosclerotic heart disease of native coronary artery without angina pectoris; I50.9 Heart failure, unspecified; E03.9 Hypothyroidism, unspecified; E11.9 Type 2 diabetes mellitus without complications; Z79.4 Long term (current) use of insulin; I10 Essential (primary) hypertension; J44.9 Chronic obstructive pulmonary disease, unspecified; R29.6 Repeated falls; Z79.899 Other long term (current) drug therapy
CPT/HCPCS: 36000; 36415; 36600; 51702; 70450; 70486; 71020; 72125; 73030; 73562; 80053; 81000; 82375; 82803; 82962; 83036; 83605; 83880; 84484; 85025; 87040; 87070; 87086; 93005; 93268; 93306; 94640; 94760; 94770; 96360; 96361; 96365; 96366; 96367; 99285; G0378; J0456; J0696; J1650; A9270-GY

== ENCOUNTER 2018-04-27 17:23 | Emergency (ER) | payer MEDICARE ==
--- NOTE | 2018-04-27 18:05 | ERPHSYRPT ---
- History of Present Illness Time Seen by Provider: 04/27/18 17:53 Source: patient, family Exam Limitations: no limitations Patient Subjective Stated Complaint: pt reports falling and scraping left lower leg 2 days ago-states she takes blood thinners and it has been oozing blood since Triage Nursing Assessment: skin tear noted to left thigh-old healing wound noted to left lower leg-bleeding controlled with pressure-bruising noted Physician History: 82-year-old white female brought by her family. Patient apparently fell 2 days ago she received a laceration to her left distal thigh. She complains of bleeding from the laceration. Patient did hit her head 2 days ago she has had no problems from that she placed ice to the area. Patient is on blood thinners. Past medical history includes peripheral neuropathy, CVA, TIA, cataracts, macular degeneration, diabetes type 2, hypothyroidism, COPD, arrhythmia, hyperlipidemia, high blood pressure, GERD, arthritis, osteoarthritis, osteoporosis , Irregular heartbeat, hyperlipidemia, frequent urinary infections Method of Injury: other (tripped over her walker) Occurred: days ago (2 days ago) Severity of Pain-Max: mild Severity of Pain-Current: none Lower Extremities Pain: thigh: left Modifying Factors: Improves With: other (patient with bleeding secondary to being on Plavix and xaralto) Associated Symptoms: none Allergies/Adverse Reactions: simvastatin [From Zocor] Allergy (Verified 04/27/18 17:36) Home Medications: Alprazolam 0.25 mg [xanAX 0.25 MG] 0.25 mg PO UD 04/27/18 [History] Apixaban [Eliquis] 2.5 mg PO DAILY 04/27/18 [History] Carvedilol 6.25 mg PO DAILY 04/27/18 [History] Clopidogrel Bisulfate [Clopidogrel] 75 mg PO DAILY 04/27/18 [History] Fluoxetine HCl 10 mg PO DAILY 04/27/18 [History] Furosemide 40 mg PO BID 04/27/18 [History] Gabapentin 200 mg PO UD 04/27/18 [History] Levothyroxine Sodium 150 Mcg [Synthroid 150 Mcg] 150 mcg PO DAILY 04/27/18 [History] Montelukast Sodium 10 mg [Singulair 10 MG] 10 mg PO DAILY 04/27/18 [History] Nitroglycerin 0.4 mg Tablet [Nitrostat 0.4 MG Tablet] 0.4 mg SL UD [History] Oxybutynin Chloride Xl 5 mg [Ditropan XL 5 MG] 5 mg PO DAILY 04/27/18 [ History] Ranitidine HCl [Zantac] 150 mg PO DAILY 04/27/18 [History] Valsartan 160 mg PO DAILY 04/27/18 [History] Hx Tetanus, Diphtheria Vaccination/Date Given: No Hx Influenza Vaccination/Date Given: No Hx Pneumococcal Vaccination/Date Given: No Immunizations Up to Date: Yes - Review of Systems Constitutional: No Fever, No Chills Eyes: No Symptoms Ears, Nose, & Throat: No Symptoms Respiratory: No Cough, No Dyspnea Cardiac: No Chest Pain, No Edema, No Syncope Abdominal/Gastrointestinal: No Abdominal Pain, No Nausea, No Vomiting, No Diarrhea Genitourinary Symptoms: No Dysuria Musculoskeletal: No Back Pain, No Neck Pain Skin: Other (patient with approximately 3 cm ecchymosis on left distal lateral thigh with skin tear at the distal end of this approximately 1-1/2 cm) Neurological: No Dizziness, No Focal Weakness, No Sensory Changes Psychological: No Symptoms Endocrine: No Symptoms All Other Systems: Reviewed and Negative - Past Medical History Pertinent Past Medical History: Yes Neurological History: Peripheral Neuropathy, Stroke, TIA ENT History: Cataracts, Macular Degeneration Cardiac History: Arrhythmia, High Cholesterol, Hypertension Respiratory History: COPD Endocrine Medical History: Diabetes Type II, Hyperthyroidism Musculoskeletal History: Arthritis, Osteoarthritis, Osteoporosis GI Medical History: GERD History: Other Psycho-Social History: No Pertinent History Female Reproductive Disorders: No Pertinent History Other Medical History: freq urination,irregular heart beat,high cholesterol - Past Surgical History Past Surgical History: Yes Neuro Surgical History: No Pertinent History Cardiac: No Pertinent History Respiratory: No Pertinent History Gastrointestinal: Appendectomy, Cholecystectomy, Hernia Repair Genitourinary: No Pertinent History Female Surgical History: No Pertinent History Other Surgical History: gallbladder removed hernia repair past colonoscopy times 1 - Social History Smoking Status: Current every day smoker How long have you smoked: yrs Exposure to second hand smoke: Yes Drug Use: none Patient Lives Alone: No - Female History Hx Now: No - Nursing Vital Signs Nursing Vital Signs: Initial Vital Signs Pulse Rate 57 L 04/27/18 18:13 Respiratory Rate 18 04/27/18 18:13 Blood Pressure 143/78 04/27/18 18:13 O2 Sat by Pulse Oximetry 99 04/27/18 18:13 Pain Scale Pain Intensity 1 - Physical Exam General Appearance: other (Well-developed well-nourishe white female alert, oriented 3.) Eyes, Ears, Nose, Throat Exam: moist mucous membranes Neck Exam: non-tender, supple Cardiovascular/Respiratory Exam: chest non-tender, normal breath sounds, regular rate/rhythm, no respiratory distress Gastrointestinal/Abdominal Exam: non-tender, guarding Back Exam: normal inspection Hips Exam: bilateral: non-tender, normal inspection, normal range of motion, no evidence of injury Legs Exam: right leg: non-tender, normal inspection, normal range of motion, no evidence of injury, left leg: other (left distal thigh with 3 cm ecchymosis and 1.5 cm skin tear distally) Knees Exam: bilateral knee: non-tender, normal inspection, normal range of motion, no evidence of injury Ankle Exam: bilateral ankle: non-tender, normal inspection, normal range of motion, no evidence of injury Foot Exam: bilateral foot: non-tender, normal inspection, normal range of motion , no evidence of injury Neuro/Tendon Exam: normal sensation, normal motor functions Mental Status Exam: alert, oriented x 3, cooperative Skin Exam: other (3 cm ecchymosis left distal thigh with 1.5 cm skin tear at distal end) SpO2 Interpretation: normal - Course Nursing assessment & vital signs reviewed: Yes Ordered Tests: Active Orders 24 hr Category Date Time Status Wound Care STAT Care 04/27/18 17:59 Active Medication Summary Discontinued Medications Generic Name Dose Route Start Last Admin Trade Name Freq PRN Reason Stop Dose Admin Diphtheria/Tetanus/Acell Pertussis 0.5 ml 04/27/18 18:12 04/27/18 18:17 Adacel Vial IM 04/27/18 18:13 0.5 ml .ONCE ONE Administration Diphtheria/Tetanus/Acell Pertussis Confirm 04/27/18 18:15 Adacel Vial Administered 04/27/18 18:16 Dose 0.5 ml IM .STK-MED ONE - Progress Progress: improved Progress Note: 04/27/18 18:07 This is a 82-year-old white female with history of peripheral neuropathy, CVA, TIA, cataracts, macular degeneration, diabetes type 2, hypothyroidism, COPD, arrhythmia, hyperlipidemia, high blood pressure, GERD Patient tripped over her walker 2 days ago she receiving a laceration (skin tear ) to her distal left thigh her granddaughter him granddaughter states that she clean the area however the patient has been having oozing of blood from the area. The patient is in the cot at this time she has approximately a 1.5 cm skin tear on her distal left side is not bleeding at this time but it was obviously had bled earlier. Patient is on xaralto and Plavix. Will have nurse clean the area apply Surgicel and apply a dressing. I've asked the granddaughter today that if the patient does have further bleeding to have her elevate her left thigh and place cold packs on this. Will go ahead and update patient's tetanus status - Departure Time of Disposition: 18:10 Departure Disposition: Home Clinical Impression: skin tear left leg Condition: Fair Critical Care Time: No Referrals: UZMA FORRESTER [Primary Care Provider] - Additional Instructions: Return home. Cool packs to area 24-48 hours, Elevate and pressure further bleeding, Follow-up with your family doctor or return if problems. Return for acute distress or for severe symptoms.
[2018-04-27 18:14] VITALS: BP 143/78; PULSE 57; O2SAT 99
[2018-04-27] MEDS ORDERED: Adacel Vial IM ONE (18:15)
[2018-04-27] MEDS: Adacel Vial IM ONE (18:17)
== END 2018-04-27 18:31 | disposition home or self-care (01) ==
LOC: ED 17:23
DX: S71.112A Laceration without foreign body, left thigh, initial encounter (principal); W01.198A Fall on same level from slipping, tripping and stumbling with subsequent striking against other object, initial encounter; G62.9 Polyneuropathy, unspecified; Z86.73 Personal history of transient ischemic attack (TIA), and cerebral infarction without residual deficits; E11.9 Type 2 diabetes mellitus without complications; E03.9 Hypothyroidism, unspecified; E78.5 Hyperlipidemia, unspecified; J44.9 Chronic obstructive pulmonary disease, unspecified; E05.90 Thyrotoxicosis, unspecified without thyrotoxic crisis or storm; I10 Essential (primary) hypertension; M81.0 Age-related osteoporosis without current pathological fracture; K21.9 Gastro-esophageal reflux disease without esophagitis; Z79.01 Long term (current) use of anticoagulants; Z79.899 Other long term (current) drug therapy; Z72.0 Tobacco use
CPT/HCPCS: 90471; 90715; 99283